=== PATIENT | female | born 1995 | race African-American/Black ===

== ENCOUNTER 2020-09-14 21:00 | Emergency (ER) | payer MEDICAID, SELFPAY ==
[2020-09-14 21:02] VITALS: BP 146/85; PULSE 76; RESP 18; TEMP 36.1; O2SAT 100
--- NOTE | 2020-09-14 22:09 | ED.ANIMALBIT ---
HPI - Animal Bite General Chief Complaint: Animal Bite Stated Complaint: dog bite on back Time Seen by Provider: 09/14/20 21:56 Source: patient Mode of arrival: ambulatory Limitations: no limitations History of Present Illness HPI narrative: A 24-year-old female comes into the emergency department tonight with complaints of a dog bite. Patient is a package delivery room service runner, was on her right when she got bit by a dog. She states that the dog was with its van owner operator and that the van owner operator stated that the dog shots were up-to-date. She notes that the bite was to her left shoulder. Related Data Allergies Allergy/AdvReac Type Severity Reaction Status Date / Time copper Allergy Rash Verified 09/14/20 21:05 Review of Systems Review of Systems: Narrative: CONSTITUTIONAL: Denies fever, chills, or sweats. EYES: Denies visual changes, redness, or discharge. ENT: Denies rhinorrhea, congestion, sore throat, or otalgia. CARDIOVASCULAR: Denies chest pain, palpitations, or edema. RESPIRATORY: Denies cough or dyspnea. GASTROINTESTINAL: Denies abdominal pain, nausea, vomiting, or diarrhea. GENITOURINARY: Denies dysuria or hematuria. SKIN: Denies rash or itching. MUSCULOSKELETAL: Denies back pain, joint pain, or myalgia. NEUROLOGIC: Denies headache, numbness, dizziness, or weakness. PSYCHIATRIC: Denies anxiety or depression. Exam Narrative: Exam Narrative: GENERAL: Well-appearing, well-nourished, and in no acute distress. HEAD: Normocephalic, atraumatic. EYES: PERRLA and EOMI. ENT: Nares clear, no rhinorrhea or epistaxis. Mucous membranes moist. NECK: Supple. No adenopathy or masses. No carotid bruits or JVD CHEST: Clear to auscultation. No respiratory distress. No wheezes rales or rhonchi HEART: Regular rate and rhythm. No murmur heard. Normal peripheral pulses. ABDOMEN: Soft, nontender, nondistended, normal active bowel sounds. EXTREMITIES: Normal range of motion. No edema. Small punctate wounds seen on the left upper shoulder. SKIN: Warm, dry, no rash. NEURO: No focal deficits. Alert and oriented x3. PSYCH: Normal mood and affect. Course Vital Signs Vital signs: Vital Signs Temperature 36.1 C L 09/14/20 21:02 Pulse Rate 76 02/13/21 21:02 Respiratory Rate 18 09/14/20 21:02 Blood Pressure 146/85 H 09/14/20 21:02 Pulse Oximetry 100 09/14/20 21:02 Temperature 36.1 C L 09/14/20 21:02 Pulse Rate 76 09/14/20 21:02 Respiratory Rate 18 09/14/20 21:02 Blood Pressure 146/85 H 09/14/20 21:02 Pulse Oximetry 100 09/14/20 21:02 MDM - Animal Bite MDM Narrative Medical decision making narrative: After interviewing the patient examining the patient's closing and bite wounds I do not think that the wounds were actually breaking the skin but rather blood blister secondary to the pressure of the bite. This was explained to the patient. I did examine her coat carefully and did not see any cuts through the coat. As I informed her that I could not be certain that I would give her the antibiotic and was up to her if she wanted to take it or not. Patient verbalized her understanding of this and will be discharged home. Discharge Plan Discharge Clinical Impression: Dog bite Qualifiers: Encounter type: initial encounter Qualified Code(s): W54.0XXA - Bitten by dog, initial encounter Patient Disposition: Home, Self-Care Condition: Improved Instructions: Antibiotic Form, Animal Bite (ED) Additional Instructions: Take all medications as directed. Follow-up with your primary care physician. Prescriptions: New amoxicillin-pot clavulanate [Augmentin] 875-125 mg tablet 1 tablet PO Q12H Qty: 20 RF: 0 Follow-up/Referrals: PHYSICIAN,FULLERETTE [Primary Care Provider] - Time of Disposition: 22:11
--- NOTE | 2020-09-14 22:12 | PC.NURSE ---
pt left before receiving discharge paperwork.
== END 2020-09-14 22:15 | disposition home or self-care (01) ==
PROVIDERS: Emergency Provider Emergency Medicine
DX: S41.052A Open bite of left shoulder, initial encounter (principal); W54.0XXA Bitten by dog, initial encounter
CPT/HCPCS: 99283